=== PATIENT | female | born 1975 | race Caucasian/White ===

== ENCOUNTER 2016-10-11 22:49 | Emergency (ER) | payer OTHER ==
[~2016-10-11] VITALS: Ht 162.6 cm; Wt 54.4 kg
[2016-10-11] MEDS ORDERED: SUMA100T PO (23:52)
[2016-10-11] MEDS ORDERED: OXYC-128 PO (23:52)
[2016-10-12] MEDS ORDERED: DIAZEPAM 2 MG TABLET PO ONE (00:15)
[2016-10-12] MEDS ORDERED: ONDANSETRON ODT 4 MG TAB.RAPDIS SL ONE (00:15)
--- NOTE | 2016-10-12 00:18 | NUR ---
Pt ambulated to room with steady gait. Pt c/o migraine x 1wk with nausea and photosensitivity. Pt sts no relief from home medications. Pt alert and oriented x 4, no neuro deficits noted. Pt seen by MD. Pt medicated for discomfort. Will monitor for effects of medication. Pt resting in position of comfort for self. Friend at bedside.
[2016-10-12] MEDS ORDERED: ONDANSETRON ODT 4 MG TAB.RAPDIS ONE (00:24)
[2016-10-12] MEDS ORDERED: DIAZEPAM 2 MG TABLET ONE (00:25)
[2016-10-12] MEDS ORDERED: METOCLOPRAMIDE HCL 10 MG/2 ML VIAL IM ONE (01:00)
[2016-10-12] MEDS ORDERED: diphenhydrAMINE 25 MG CAP PO ONE ×2 (01:00→01:25)
[2016-10-12] MEDS ORDERED: diphenhydrAMINE 50 MG/1 ML VIAL IM ONE (01:00)
[2016-10-12] MEDS ORDERED: DEXAMETHASONE 4 MG TABLET PO ONE (01:00)
--- NOTE | 2016-10-12 01:00 | NUR ---
Pt conts to c/o severe pain. Sts no change with previous medication. MD notified, awaiting further orders.
[2016-10-12] MEDS ORDERED: METOCLOPRAMIDE HCL 10 MG TABLET PO ONE (01:15)
--- NOTE | 2016-10-12 01:18 | NUR ---
Pt medicated for cont pain and discomfort. Will monitor for effects of medication.
[2016-10-12] MEDS ORDERED: DEXAMETHASONE 4 MG TABLET ONE (01:25)
[2016-10-12] MEDS ORDERED: METOCLOPRAMIDE HCL 10 MG TABLET ONE (01:25)
--- NOTE | 2016-10-12 02:03 | NUR ---
Pt sts she is feeling better. Pt stable for discharge per MD. Pt given ACI. Pt verbalized understanding of dc instructions. 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
[2016-10-12 02:10] VITALS: BP 118/75
== END 2016-10-12 02:11 | disposition home or self-care (01) ==
LOC: ER 22:50
DX: G43.909 Migraine, unspecified, not intractable, without status migrainosus (principal); F10.10 Alcohol abuse, uncomplicated
CPT/HCPCS: A4663; J8540; J8597; Q0162; Q0163